=== PATIENT | female | born 1975 | race Caucasian/White ===

== ENCOUNTER 2019-06-28 16:19 | Inpatient (IN) | payer MEDICARE, MEDICAID ==
[~2019-06-28] VITALS: Ht 162.6 cm; Wt 78.9 kg
[~2019-06-28 16:19] MED LIST: ALPR0.5T3 PO; ASPI1TAB PO; CITRTAB15 PO; CLOP75TA2 PO; CRES20TA PO; CYCL10TA3 PO; FAMO20TA PO; FERR324T10 PO; GAS125CH10 PO; HYDR-3716 PO; HYDR25OI EXT; IBUP200C PO; LOVA1CAP16 PO; MELA1CAP2 PO; METO100T3 PO; MULTTAB12 PO; NORCOBULK PO; OMEP40CA2 PO; OXYC-517 PO; PARO40TA PO; SUPECAP24 PO; TYLE650T25 PO; VALT1TAB PO; VENTAER INH; VITA1CAP7 PO; VITA250L PO; WELL100T PO; ZEST20TA8 PO; [UNRECOGNIZED DRUG - CODE] TOP; primrose oil PO
[2019-06-28] MEDS ORDERED: CARA1TAB6 PO (17:05)
[2019-06-28] MEDS ORDERED: OMEP-221 PO (17:05)
[2019-06-28] MEDS ORDERED: ACET-683 PO (17:05)
[2019-06-28] MEDS ORDERED: CITRTAB18 PO (17:05)
[2019-06-28] MEDS ORDERED: VALT1TAB PO (17:05)
[2019-06-28] MEDS ORDERED: CENT1TAB PO (17:05)
[2019-06-28] MEDS ORDERED: ULTR5TAB PO (17:05)
[2019-06-28] MEDS ORDERED: SIME125C4 PO (17:05)
[2019-06-28] MEDS ORDERED: CETI10CH PO (17:05)
[2019-06-28] MEDS ORDERED: MISO200T56 PO (17:05)
[2019-06-28] MEDS ORDERED: METO200T28 PO (17:05)
[2019-06-28] MEDS ORDERED: MYCO15CR TOP (17:05)
[2019-06-28] MEDS ORDERED: FLOM0.4C39 PO (17:05)
[2019-06-28 17:20] LABS: HEMATOCRIT 49.3 % (36.0-47.0); HEMOGLOBIN 15.9 g/dl (12.0-15.5); MEAN CORPUSCULAR HEMOGLOBIN 30.2 pg (27.0-33.0); MEAN CORPUSCULAR HGB CONC 32.3 g/dl (32.0-36.5); MEAN CORPUSCULAR VOLUME 93.5 fl (80.0-96.0); PLATELET COUNT, AUTOMATED 411 10^3/uL (150-450); RED BLOOD COUNT 5.27 10^6/uL (4.00-5.40); WHITE BLOOD COUNT 8.1 10^3/uL (4.0-10.0)
[2019-06-28 17:41] LABS: AMPHETAMINES LEVEL URINE NEGATIVE (NEGATIVE); BARBITURATES URINE NEGATIVE (NEGATIVE); BENZODIAZEPINES URINE POSITIVE (NEGATIVE); CANNABINOIDS URINE NEGATIVE (NEGATIVE); COCAINE METABOLITE URINE NEGATIVE (NEGATIVE); METHADONE URINE NEGATIVE (NEGATIVE); OPIATES URINE NEGATIVE (NEGATIVE); PHENCYCLIDINE URINE NEGATIVE (NEGATIVE)
[2019-06-28 17:45] LABS: HCG, SERUM QUALITATIVE NEGATIVE (NEGATIVE)
[2019-06-28 17:51] LABS: ACETAMINOPHEN LEVEL < 2.0 UG/ML (10.0-30.0); ALBUMIN 4.2 GM/DL (3.2-5.2); ALT/SGPT 26 U/L (12-78); BILIRUBIN,DIRECT 0.1 MG/DL (0.0-0.2); BILIRUBIN,TOTAL 0.3 MG/DL (0.2-1.0); BLOOD UREA NITROGEN 7 MG/DL (7-18); CALCIUM LEVEL 9.7 MG/DL (8.5-10.1); CARBON DIOXIDE LEVEL 29 MEQ/L (21-32); CHLORIDE LEVEL 104 MEQ/L (98-107); ETHYL ALCOHOL (ETHANOL) < 0.003 % (0.000-0.010); GLOMERULAR FILTRATION RATE > 60.0 (>58); GLUCOSE, FASTING 93 MG/DL (70-100); POTASSIUM SERUM 3.9 MEQ/L (3.5-5.1); SALICYLATE LEVEL < 1.7 MG/DL (5.0-30.0); SODIUM LEVEL 140 MEQ/L (136-145); TOTAL PROTEIN 7.8 GM/DL (6.4-8.2)
[2019-06-28] MEDS: CETIRIZINE (ZyrTEC) 10 MG TAB PO SCH (18:00)
[2019-06-28] MEDS ORDERED: ALPRAZolam 0.25 MG TAB PO ONE ×3 (18:00→19:45)
[2019-06-28] MEDS ORDERED: NICOTINE 21MG/24HR 1 EA TRANSDERMAL TD ONE (18:00)
[2019-06-28] MEDS ORDERED: FERR325T3 PO (19:10)
[2019-06-28] MEDS ORDERED: D3 M1CAP2 PO (19:10)
[2019-06-28] MEDS ORDERED: BUPR1TAB52 PO (19:10)
[2019-06-28] MEDS ORDERED: HYDR-3363 PO (19:10)
[2019-06-28] MEDS ORDERED: VENTAER INH (19:10)
[2019-06-28] MEDS ORDERED: METO1TAB33 PO (19:10)
[2019-06-28] MEDS ORDERED: ALPR0.5T3 PO (19:10)
[2019-06-28] MEDS ORDERED: PARO40TA2 PO (19:10)
[2019-06-28] MEDS ORDERED: PLAV1TAB2 PO (19:10)
[2019-06-28] MEDS ORDERED: ALL10TAB29 PO (19:10)
[2019-06-28] MEDS ORDERED: MELA5CAP2 PO (19:10)
[2019-06-28] MEDS ORDERED: CYCL10TA PO (19:10)
[2019-06-28] MEDS ORDERED: SPIR-10 PO (19:10)
[2019-06-28] MEDS ORDERED: MAALOX 30 ML SUSP *UDC PO PRN (19:30)
[2019-06-28] MEDS ORDERED: traZODone 50 MG TAB PO PRN (19:30)
[2019-06-28] MEDS ORDERED: MOM 30ML SUSPENSION UDC PO PRN (19:30)
[2019-06-28 21:43] VITALS: BP 130/82
[2019-06-28] MEDS: hydrOXYzine 25 MG TAB PO PRN (22:08)
[2019-06-28] MEDS ORDERED: ALBUTEROL 90 MCG/ACT 8GM HFA INHALER INH PRN (22:15)
[2019-06-28] MEDS ORDERED: valACYclovir HCL 500 MG TAB PO PRN (22:15)
[2019-06-28] MEDS ORDERED: MYCOLOG CREAM 15 GM (NYSTATIN/TRIAMCINOLONE) TOP PRN (22:15)
[2019-06-28] MEDS ORDERED: SIMETHICONE 80 MG CHEW TAB PO PRN (22:15)
[2019-06-28] MEDS: miSOPROStol 200 MCG TAB (S0191) PO SCH (22:57)
[2019-06-28] MEDS: SUCRALFATE 1 GM TAB PO SCH (22:57)
[2019-06-28] MEDS: METOPROLOL SUCC (TopROL XL) 100MG *XL* TAB PO SCH (22:58)
[2019-06-28] MEDS: ACETAMINOPHEN TAB 650MG DOSE (2X325MG) PO PRN (22:58)
[2019-06-29] MEDS: hydrOXYzine 25 MG TAB PO PRN ×3 (06:10→12:31)
[2019-06-29 06:11] VITALS: BP 136/92
[2019-06-29] MEDS: ACETAMINOPHEN TAB 650MG DOSE (2X325MG) PO PRN ×2 (07:39→15:09)
[2019-06-29] MEDS ORDERED: PARoxetine 20 MG TAB PO SCH (09:00)
[2019-06-29] MEDS: METOPROLOL SUCC (TopROL XL) 100MG *XL* TAB PO SCH ×2 (09:27→20:19)
[2019-06-29] MEDS: CLOPIDOGREL 75 MG TAB PO SCH (09:28)
[2019-06-29] MEDS: FERROUS SULFATE 325MG TAB PO SCH (09:28)
[2019-06-29] MEDS: OMEPRAZOLE 20 MG CAP PO SCH (09:28)
[2019-06-29] MEDS: MULTIVITAMINS/MINERALS THERAP 1 TAB PO SCH (09:28)
[2019-06-29] MEDS: SUCRALFATE 1 GM TAB PO SCH ×2 (09:28→20:19)
[2019-06-29] MEDS: SPIRONOLACTONE 25 MG TAB PO SCH (09:29)
[2019-06-29] MEDS: miSOPROStol 200 MCG TAB (S0191) PO SCH ×4 (09:29→20:20)
[2019-06-29] MEDS: NICOTINE 21MG/24HR 1 EA TRANSDERMAL TD SCH (10:33)
--- NOTE | 2019-06-29 13:24 | MHHPEPDOC ---
General Date Of Admission: Jun 28, 2019 Legal Status: 9.39 Chief Complaint "I'm scared to be alone." History of Present Illness HISTORY OF THE PRESENT ILLNESS: Patient is a 44 -year-old , female, with a history of anxiety who self presented to the ED with her mother endorsing increasing anxiety. Per ED, pt was very emotional and stated she's been repressing her anxiety thru out much of her life, has tried to make outpatient appts but they were constantly pushed back, has an appt at [facility] with a PREVENTATIVE MAINTENANCE TECHNICIAN but can't wait until 07/13/19 before she sees someone for help due to her anxiety. Pt stated in the ED that her biggest trigger currently for her anxiety was that her parents are after 34yrs of marriage. Stated in ED "depression and anxiety is bigger than myself... I am scared to be alone b/c of what I might do." Pt stated in the ED that she is alone often during the day when her long time boyfriend is working and fears she will not bin in control of herself and her actions if left alone due to her anxiety. Psychiatric Review of Systems Depression (2 or more weeks): depressed mood, difficulty concentrating, suicidal thoughts Rosalinda (4 or more days of): denies Psychosis: denies Anxiety: gen/non-specific anxiety, situational anxiety, stressor related anxiety Anxiety/ 6 months or more of: restlessness, keyed up, difficulty concentrating Past Psychiatric History Previous Psychiatric Diagnosis: Anxiety and depression Previous Psychiatric Admissions: denies Suicide Attempts: denies Psychiatric Follow-up: [facility] with PREVENTATIVE MAINTENANCE TECHNICIAN 07/13/19 Psychiatric medications: wellbutrin sr 100mg bid, xanax 0.5mg tid, vistaril 25mg qid, paxil 60mg daily Past Medical History Medical Problems stroke x2 with left side deficits (lf food) hx of GI bleed HTN CAD Head Injury: Yes (stroke x2) Seizures: No Hospitalizations: Yes Surgeries: Yes (ovarian cyst removal) Family Medical/Psychiatric HX Medical Problems noncontributory Psychiatric Disorders: Yes (anxiety and depression thru out family) Addiction: No Suicide Attemps/Completions: No Addiction History other (utox positive benzo's, she is prescribed xanax) Social History Childhood: Born and raised [facility], 2 parent home, good childhood, has siblings. 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 Marital: in a committed continuous churn buttermaker relationship with her boyfriend, calls her dogs her kids Mental Status Examination General Appearance: unkempt, appears stated age, hospital scubs/clothing Build: overweight Demeanor: average Eye Contact: average Activity: average, anxious Behavior: cooperative Speech: clear, spontaneous, reg/rate,rhythm,volume Mood: euthymic, anxious Mood "I'm having a lot of anxiety and can get into see anyone to help." Affect: full, appropriate, congruent, anxious Thought Process: logical/linear, intact Thought Content (Delusions): none reported, denies SI, HI, AVH Thought Content (Other): none reported, obsessional (anxiety) Thought Content (Aggressive): none reported Perception (Hallucinations): none reported Perception (Other): none reported Cognition (Impairment of): none reported Cognition(Intelligence Est.): average Oriented: Awake, Alert, Oriented times three Insight: good Judgment: Good Psychosis: Denies Diagnoses Generalized Anxiety D/O Panic d/o without agoraphobia Assessment Pt seen and states she's been struggling with anxiety and medications not very helpful. States it's been very hard for her to see some one out patient as appts' are always rescheduled. States paxil was beneficial when first started but even with increase not very helpful for anxiety and was recently titered off and started on lexapro which she had side effects "of my body feeling like some was wrong" so titered herself off of it now back on paxil 60mg daily. Educated pt that over time xanax can increase anxiety due to med tolerance and need more to treat anxiety and that one major side effect of wellbutrin is anxiety due to DA/NA activity and recommend d/c of each to pt which she agrees with. Discussed med options with pt and pt agreeable cross-titration of paxil to prozac, increase vistaril to 50mg q6hr prn anxiety, and start inderal 10mg tid for anxiety. States trazodone not very helpful for sleep and is agreeable to starting doxepin for sleep instead. All med risks/benefits discussed regarding all meds pt starting and pt agrees with plan. She denies current SI/HI, hallucinations, delusions. Feels safe here. She is very pleasant and cooperative. Initial Treatment Plan 1. Patient was admitted on a 9.39 status. 2. Complete history was obtained. 3. With patients permission, family will be contacted and database will be expanded. 4. Patients medication regimen will be reviewed and changed accordingly. 5. Patient will be provided with protected environment. 6. Patient will be treated with individual, group, and milieu therapies. 7. Patient will receive supportive psych-education. 8. Discharge planning will commence immediately. 9. Outpatient follow-up treatment will be strongly recommended. 10. The initial treatment plan will focus initially on: * Depression. * Risk for suicide. 11. increase vistaril to 50mg q6hr prn anxiety, start inderal 10mg tid for anxiety and doxepin 10mg qhs for sleep. Cross titrate paxil to prozac. Paxil 40mg daily, prozac 20mg daily. ESTIMATED LENGTH OF STAY: 5-7 DAYS. TIME SPENT COUNSELING AND COORDINATING INITIAL CARE: 60 minutes. Vital Signs Vital Signs Date Time Temp Pulse Resp B/P (MAP) Pulse Ox O2 Delivery O2 Flow Rate FiO2 06/29/19 09:27 96 132/92 06/29/19 07:44 Room Air 06/29/19 06:11 98.8 18 06/28/19 21:43 96 Laboratory Data 24H Labs Laboratory Tests 2 06/28/19 17:02: Nucleated Red Blood Cells % (auto) 0.0, Anion Gap 7L, Glomerular Filtration Rate > 60.0, Calcium Level 9.7, Total Bilirubin 0.3, Direct Bilirubin 0.1, Aspartate Amino Transf (AST/SGOT) 19, Alanine Aminotransferase (ALT/SGPT) 26, Alkaline Phosphatase 86, Total Protein 7.8, Albumin 4.2, Albumin/Globulin Ratio 1.17, Thyroid Stimulating Hormone (TSH) 2.860, Human Chorionic Gonadotropin, Qual NEGATIVE, Salicylates Level < 1.7L, Urine Opiates Screen NEGATIVE, Urine Methadone Screen NEGATIVE, Acetaminophen Level < 2.0L, Urine Barbiturates Screen NEGATIVE, Urine Phencyclidine Screen NEGATIVE, Urine Amphetamines Screen NEGATIVE, Urine Benzodiazepines Screen POSITIVEH, Urine Cocaine Metabolite Screen NEGATIVE, Urine Cannabinoids Screen NEGATIVE, Ethyl Alcohol Level < 0.003 CBC/BMP Laboratory Tests 06/28/19 17:02 Medications Scheduled Biotin (Biotin) 5,000 Mcg Tab.rapdis, 15,000 MCG PO BID, (Reported) Bupropion HCl (Bupropion HCl Sr) 100 Mg Tab.sr.12h, 100 MG PO BID, (Reported) Calcium Citrate/Vitamin D3 (Citracal + D Maximum Caplet) 1 Each Tablet, 1 TAB PO BID, (Reported) Cetirizine HCl (Cetirizine HCl) 10 Mg Tablet, 10 MG PO QPM, (Reported) Cholecalciferol (Vitamin D3) (Vitamin D3) 5,000 Unit Capsule, 5,000 UNIT PO DAILY, (Reported) Clopidogrel Bisulfate (Plavix) 75 Mg Tablet, 75 MG PO DAILY, (Reported) Ferrous Sulfate (Ferrous Sulfate) 325 Mg Tablet.dr, 325 MG PO DAILY, (Reported) Melatonin (Melatonin) 5 Mg Capsule, 5 MG PO QHS, (Reported) Metoprolol Succinate (Metoprolol Succinate) 100 Mg Tab.er.24h, 100 MG PO BID, (Reported) Misoprostol (Misoprostol) 200 Mcg Tablet, 200 MCG PO QID, (Reported) Multivit-Min/FA/Lycopen/Lutein (Centrum Silver Tablet) 1 Each Tablet, 1 TAB PO DAILY, (Reported) Omeprazole (Omeprazole) 40 Mg Capsule.dr, 40 MG PO DAILY, (Reported) Paroxetine HCl (Paroxetine HCl) 40 Mg Tablet, 60 MG PO DAILY, (Reported) Spironolactone (Spironolactone) 25 Mg Tablet, 25 MG PO DAILY, (Reported) Sucralfate (Carafate) 1 Gm Tablet, 1 GRAM PO BID, (Reported) Scheduled PRN Acetaminophen (Acetaminophen) 500 Mg Tablet, 500 MG PO Q6H PRN for PAIN OR FEVER, (Reported) Albuterol Sulfate (Ventolin Hfa) 18 Gm Hfa.aer.ad, 2 PUFF INH Q4H PRN for wheezing, (Reported) Alprazolam (Alprazolam) 0.5 Mg Tablet, 0.5 MG PO TID PRN for ANXIETY/AGITATION, (Reported) Cyclobenzaprine HCl (Cyclobenzaprine HCl) 10 Mg Tablet, 10 MG PO TID PRN for MUSCLE SPASMS, (Reported) Hydroxyzine HCl (Hydroxyzine HCl) 25 Mg Tablet, 25 MG PO QID PRN for AN XIETY/AGITATION, (Reported) Nystatin/Triamcinolone (Nystatin-Triamcinolone Cream) 15 Gm Cream..g., 1 APPLIC TOP BID PRN for ITCHING/SWELLING, (Reported) APPLY TO AFFECTED AREAS Simethicone (Gas-X) 125 Mg Capsule, 125 MG PO ACHS PRN for GAS PAIN, (Reported) Valacyclovir HCl (Valtrex) 1,000 Mg Tablet, 1 GM PO BID PRN for COLD SORES, (Reported) Allergies Coded Allergies: citalopram (Verified Allergy, Unknown, multiple, 06/28/19) latex (Verified Allergy, Unknown, itching, 06/28/19) sulfamethoxazole (Verified Allergy, Unknown, intolerance, 06/28/19) trimethoprim (Verified Allergy, Unknown, intolerance, 06/28/19) amlodipine (Verified Adverse Reaction, Unknown, migraines and vision changes, 06/28/19) duloxetine (Verified Adverse Reaction, Unknown, palpitations and mood swings, 06/28/19) ibuprofen (Verified Adverse Reaction, Unknown, upset stomach, 06/28/19) pregabalin (Verified Adverse Reaction, Unknown, n/v/d insomnia, 06/28/19) ANITHA HENDRIX DO Jun 29, 2019 11:02 am
--- NOTE | 2019-06-29 13:55 | HPEPDOC ---
General Date of Admission Jun 28, 2019 at 19:25 Date of Service: Jun 29, 2019 Attending Physician: KENDELL CAZARES MD Chief Complaint The patient is a 44-year-old female admitted with a reason for visit of Unspecified Anxiety. Source: Patient Exam Limitations: No limitations Associated Symptoms: Denies Symptoms History of Present Illness Patient was admitted to inpatient mental health to assess exacerbation of her generalized anxiety symptoms. Patient is being assessed medically by the hospitalist group. Patient reported she recently went through some family issues which precipitated a worsening of her anxiety. She is fully aware of her symptoms and is able to self-identify and communicate with staff. Patient is wondering about her Xanax prescription which was abruptly discontinued. Nursing staff will follow-up with psychiatry regarding this. Patient requested a Nicotine Patch prescription to be continued. No medical issues reported by patient or nursing staff. Home Medications Scheduled Biotin (Biotin) 5,000 Mcg Tab.rapdis, 15,000 MCG PO BID, (Reported) Bupropion HCl (Bupropion HCl Sr) 100 Mg Tab.sr.12h, 100 MG PO BID, (Reported) Calcium Citrate/Vitamin D3 (Citracal + D Maximum Caplet) 1 Each Tablet, 1 TAB PO BID, (Reported) Cetirizine HCl (Cetirizine HCl) 10 Mg Tablet, 10 MG PO QPM, (Reported) Cholecalciferol (Vitamin D3) (Vitamin D3) 5,000 Unit Capsule, 5,000 UNIT PO DAILY, (Reported) Clopidogrel Bisulfate (Plavix) 75 Mg Tablet, 75 MG PO DAILY, (Reported) Ferrous Sulfate (Ferrous Sulfate) 325 Mg Tablet.dr, 325 MG PO DAILY, (Reported) Melatonin (Melatonin) 5 Mg Capsule, 5 MG PO QHS, (Reported) Metoprolol Succinate (Metoprolol Succinate) 100 Mg Tab.er.24h, 100 MG PO BID, (Reported) Misoprostol (Misoprostol) 200 Mcg Tablet, 200 MCG PO QID, (Reported) Multivit-Min/FA/Lycopen/Lutein (Centrum Silver Tablet) 1 Each Tablet, 1 TAB PO DAILY, (Reported) Omeprazole (Omeprazole) 40 Mg Capsule.dr, 40 MG PO DAILY, (Reported) Paroxetine HCl (Paroxetine HCl) 40 Mg Tablet, 60 MG PO DAILY, (Reported) Spironolactone (Spironolactone) 25 Mg Tablet, 25 MG PO DAILY, (Reported) Sucralfate (Carafate) 1 Gm Tablet, 1 GRAM PO BID, (Reported) Scheduled PRN Acetaminophen (Acetaminophen) 500 Mg Tablet, 500 MG PO Q6H PRN for PAIN OR FEVER, (Reported) Albuterol Sulfate (Ventolin Hfa) 18 Gm Hfa.aer.ad, 2 PUFF INH Q4H PRN for wheezing, (Reported) Alprazolam (Alprazolam) 0.5 Mg Tablet, 0.5 MG PO TID PRN for ANXIETY/AGITATION, (Reported) Cyclobenzaprine HCl (Cyclobenzaprine HCl) 10 Mg Tablet, 10 MG PO TID PRN for MUSCLE SPASMS, (Reported) Hydroxyzine HCl (Hydroxyzine HCl) 25 Mg Tablet, 25 MG PO QID PRN for ANXIETY/AGITATION, (Reported) Nystatin/Triamcinolone (Nystatin-Triamcinolone Cream) 15 Gm Cream..g., 1 APPLIC TOP BID PRN for ITCHING/SWELLING, (Reported) APPLY TO AFFECTED AREAS Simethicone (Gas-X) 125 Mg Capsule, 125 MG PO ACHS PRN for GAS PAIN, (Reported) Valacyclovir HCl (Valtrex) 1,000 Mg Tablet, 1 GM PO BID PRN for COLD SORES, (Reported) Allergies Coded Allergies: citalopram (Verified Allergy, Unknown, multiple, 06/28/19) latex (Verified Allergy, Unknown, itching, 06/28/19) sulfamethoxazole (Verified Allergy, Unknown, intolerance, 06/28/19) trimethoprim (Verified Allergy, Unknown, intolerance, 06/28/19) amlodipine (Verified Adverse Reaction, Unknown, migraines and vision changes, 06/28/19) duloxetine (Verified Adverse Reaction, Unknown, palpitations and mood swings, 06/28/19) ibuprofen (Verified Adverse Reaction, Unknown, upset stomach, 06/28/19) pregabalin (Verified Adverse Reaction, Unknown, n/v/d insomnia, 06/28/19) Social History * Smoker: former Smoker Recent Travel/Sick Contacts: Reports: Recent travel Psychosocial History: Tino SI and HI A-FIB/CHADSVASC A-FIB History Current/History of A-Fib/PAF?: No Review of Systems Constitutional: Denies: Chills, Fever, Night Sweats Eyes: Denies: Pain ENT: Denies: Head Aches Skin: Denies: Rash, Lesions Pulmonary: Denies: Dyspnea, Cough Cardiovascular: Denies: Chest Pain, Palpitations Gastrointestinal: Denies: Nausea, Vomiting, Abdominal Pain, Diarrhea Genitourinary: Denies: Dysuria, Frequency Hematologic: Denies: Bruising, Bleeding Excessively Musculoskeletal: Denies: Neck Pain, Back Pain, Joint Pain, Muscle Pain, Spasms Neurological: Denies: Weakness, Numbness Psych: Reports: Anxiety (deteriorating over the past few weeks); Denies: Mood Normal, Depression, Memory Issues Physical Examination General Exam: Positive: Alert, No Acute Distress Eye Exam: Positive: Conjunctiva & lids normal ENT Exam: Positive: Atraumatic, Mucous membr. moist/pink, Pharynx Normal Neck Exam: Positive: Supple; Negative: thyromegaly Chest Exam: Positive: Clear to auscultation, Normal air movement Heart Exam: Positive: Rate Normal, Normal S1, Normal S2 Abdomen Exam: Positive: Normal bowel sounds, Soft Extremity Exam: Positive: Cyanosis, Edema Skin Exam: Positive: Nl turgor and temperature Neuro Exam: Positive: Normal Gait, Normal Speech Psych Exam: Positive: Anxiety (Slight anxiety ) Vital Signs Vital Signs Date Time Temp Pulse Resp B/P (MAP) Pulse Ox O2 Delivery O2 Flow Rate FiO2 06/29/19 09:27 96 132/92 06/29/19 07:44 Room Air 06/29/19 06:11 98.8 18 06/28/19 21:43 96 Laboratory Data Labs 24H Laboratory Tests 2 06/28/19 17:02: Nucleated Red Blood Cells % (auto) 0.0, Anion Gap 7L, Glomerular Filtration Rate > 60.0, Calcium Level 9.7, Total Bilirubin 0.3, Direct Bilirubin 0.1, Aspartate Amino Transf (AST/SGOT) 19, Alanine Aminotransferase (ALT/SGPT) 26, Alkaline Phosphatase 86, Total Protein 7.8, Albumin 4.2, Albumin/Globulin Ratio 1.17, Thyroid Stimulating Hormone (TSH) 2.860, Human Chorionic Gonadotropin, Qual NEGATIVE, Salicylates Level < 1.7L, Urine Opiates Screen NEGATIVE, Urine Methadone Screen NEGATIVE, Acetaminophen Level < 2.0L, Urine Barbiturates Screen NEGATIVE, Urine Phencyclidine Screen NEGATIVE, Urine Amphetamines Screen NEGATIVE, Urine Benzodiazepines Screen POSITIVEH, Urine Cocaine Metabolite Screen NEGATIVE, Urine Cannabinoids Screen NEGATIVE, Ethyl Alcohol Level < 0.003 CBC/BMP Laboratory Tests 06/28/19 17:02 Plan / VTE VTE Prophylaxis Ordered?: Yes Plan Plan Patient will continue to be managed per psychiatry. Diet: Continue Current Activity: Continue Current SALONI SHAIKH PA-C Jun 29, 2019 13:55
[2019-06-29] MEDS ORDERED: PROPRANOLOL 10 MG TAB PO ONE (14:00)
[2019-06-29] MEDS: hydrOXYzine 50 MG TAB PO PRN ×2 (15:08→20:19)
--- NOTE | 2019-06-29 16:34 | IPNPDOC ---
Text Note Date of Service The patient was seen on 06/29/19. NOTE Medicine will sign off at this time. VS,Fishbone, I+O VS, Fishbone, I+O Laboratory Tests 06/28/19 17:02 Vital Signs Date Time Temp Pulse Resp B/P (MAP) Pulse Ox O2 Delivery O2 Flow Rate FiO2 06/29/19 09:27 96 132/92 06/29/19 07:44 Room Air 06/29/19 06:11 98.8 18 06/28/19 21:43 96 SALONI SHAIKH PA-C Jun 29, 2019 16:34
[2019-06-29] MEDS: PROPRANOLOL 10 MG TAB PO SCH ×2 (17:35→20:19)
[2019-06-29] MEDS: CETIRIZINE (ZyrTEC) 10 MG TAB PO SCH (17:35)
[2019-06-29 18:00] VITALS: BP 138/86
[2019-06-29] MEDS: DOXEPIN 10 MG CAP PO SCH (20:19)
[2019-06-29] MEDS: CYCLOBENZAPRINE 10 MG TAB PO PRN (20:19)
[2019-06-29] MEDS ORDERED: QUEtiapine FUMARATE 50 MG TAB PO ONE (22:45)
[2019-06-30] MEDS: hydrOXYzine 50 MG TAB PO PRN ×3 (05:05→20:55)
[2019-06-30 06:01] VITALS: BP 138/96
[2019-06-30] MEDS ORDERED: ALPRAZolam 0.5 MG TAB PO ONE (06:30)
[2019-06-30] MEDS ORDERED: ALPRAZolam 0.5 MG TAB PO PRN (09:30)
[2019-06-30] MEDS: ACETAMINOPHEN TAB 650MG DOSE (2X325MG) PO PRN ×2 (09:39→20:28)
[2019-06-30] MEDS: CLOPIDOGREL 75 MG TAB PO SCH (09:39)
[2019-06-30] MEDS: PARoxetine 20 MG TAB PO SCH (09:39)
[2019-06-30] MEDS: NICOTINE 21MG/24HR 1 EA TRANSDERMAL TD SCH (09:40)
[2019-06-30] MEDS: METOPROLOL SUCC (TopROL XL) 100MG *XL* TAB PO SCH ×2 (09:40→20:28)
[2019-06-30] MEDS: PROPRANOLOL 10 MG TAB PO SCH ×3 (09:40→20:27)
[2019-06-30] MEDS: FLUoxetine 10 MG CAP PO SCH (09:41)
[2019-06-30] MEDS: SUCRALFATE 1 GM TAB PO SCH ×2 (09:41→20:28)
[2019-06-30] MEDS: miSOPROStol 200 MCG TAB (S0191) PO SCH ×4 (09:41→20:28)
[2019-06-30] MEDS: FERROUS SULFATE 325MG TAB PO SCH (09:41)
[2019-06-30] MEDS: SPIRONOLACTONE 25 MG TAB PO SCH (09:41)
[2019-06-30] MEDS: OMEPRAZOLE 20 MG CAP PO SCH (09:41)
[2019-06-30] MEDS: MULTIVITAMINS/MINERALS THERAP 1 TAB PO SCH (09:41)
--- NOTE | 2019-06-30 09:42 | MHIPNPDOC ---
[facility] Progress Note Progress Note DATE OF SERVICE: 06/30/19 HISTORY:Patient is a 44 -year-old , female, with a history of anxiety who self presented to the ED with her mother endorsing increasing anxiety. Per ED, pt was very emotional and stated she's been repressing her anxiety thru out much of her life, has tried to make outpatient appts but they were constantly pushed back, has an appt at [facility] with a STOCKFEED MILLER but can't wait until 07/13/19 before she sees someone for help due to her anxiety. Pt stated in the ED that her biggest trigger currently for her anxiety was that her parents are after 34yrs of marriage. Stated in ED "depression and anxiety is bigger than myself... I am scared to be alone b/c of what I might do." Pt stated in the ED that she is alone often during the day when her long time boyfriend is working and fears she will not bin in control of herself and her actions if left alone due to her anxiety. Pt seen and states she's been struggling with anxiety and medications not very helpful. States it's been very hard for her to see some one out patient as appts' are always rescheduled. States paxil was beneficial when first started but even with increase not very helpful for anxiety and was recently titered off and started on lexapro which she had side effects "of my body feeling like some was wrong" so titered herself off of it now back on paxil 60mg daily. Educated pt that over time xanax can increase anxiety due to med tolerance and need more to treat anxiety and that one major side effect of wellbutrin is anxiety due to DA/NA activity and recommend d/c of each to pt which she agrees with. Discussed med options with pt and pt agreeable cross-titration of paxil to prozac, increase vistaril to 50mg q6hr prn anxiety, and start inderal 10mg tid for anxiety. States trazodone not very helpful for sleep and is agreeable to starting doxepin for sleep instead. All med risks/benefits discussed regarding all meds pt starting and pt agrees with plan. She denies current SI/HI, hallucinations, delusions. Feels safe here. She is very pleasant and cooperative. VITAL SIGNS: See below. NEW TEST RESULTS: See below. CURRENT MEDICATIONS: See below. MENTAL STATUS EXAMINATION: General Appearance: unkempt, appears stated age, hospital scrubs/clothing Build: overweight Demeanor: average Eye Contact: average Activity: average, anxious Behavior: cooperative Speech: clear, spontaneous, reg/rate,rhythm,volume Mood: euthymic, anxious Mood "depressed b/c I miss my family." Affect: full, appropriate, congruent, anxious Thought Process: logical/linear, intact, misses being with family Thought Content (Delusions): none reported, denies SI, HI, AVH Thought Content (Other): none reported, obsessional (anxiety) Thought Content (Aggressive): none reported Perception (Hallucinations): none reported Perception (Other): none reported Cognition (Impairment of): none reported Cognition(Intelligence Est.): average Oriented: Awake, Alert, Oriented times three Insight: good Judgment: Good Psychosis: Denies DIAGNOSES: Generalized Anxiety D/O Panic d/o without agoraphobia ASSESSMENT:Pt seen and states that her mood is "depressed" as she really misses her family. Pt was given one time order on xanax last night due to severe withdrawal secondary to xanax discontinuation yesterday. Stated it was terrible last night, that she couldn't sleep b/c the anxiety wouldn't go away. Advised will titrate her off xanax with prn xanax bid for benzo withdrawal which should improve and prevent withdrawal symptoms from occurring again. Anxious about her roommate being d/c as that will leave her without a roommate and doesn't want to be alone and encouraged that most likely she will get a new roommate today most likely. Asked for some coping mechanism to aid her during a panic attack and educated pt about grounding intervention for panic attack and states she will practise. Feels she is tolerating his medications and they're beneficial. She is attending groups and finding them helpful. She denies SI/HI, hallucinations, delusions. Pt feels safe here. MANAGEMENT PLAN:titrate off xanax Medications: vistaril to 50mg q6hr prn anxiety inderal 10mg tid for anxiety doxepin 10mg qhs for sleep Paxil 40mg daily prozac 20mg daily. xanax 0.5mg bid prn benzo withdrawal TIME SPENT: 30 minutes. Vital Signs Vital Signs Date Time Temp Pulse Resp B/P (MAP) Pulse Ox O2 Delivery O2 Flow Rate FiO2 06/30/19 06:01 97.5 90 18 138/96 (110) 06/29/19 07:44 Room Air 06/28/19 21:43 96 Current Medications Current Medications Medications (Trade) Dose Ordered Sig/Yoselin Route PRN Reason Start Time Stop Time Status Last Admin Dose Admin Acetaminophen (Tylenol Tab) 650 mg Q6HP PRN PO HEADACHE or DISCOMFORT 06/28/19 19:30 06/29/19 15:09 Al Hydrox/Mg Hydrox/Simethicone (Mylanta) 30 ml Q4HP PRN PO HEARTBURN/INDIGESTION 06/28/19 19:30 Albuterol Sulfate (Proventil, Ventolin Hfa) 2 puff Q4H PRN INH wheezing 06/28/19 22:15 Cetirizine HCl (ZyrTEC) 10 mg DAILY@1800 PO 06/28/19 18:00 06/29/19 17:35 Clopidogrel Bisulfate (PLAVix) 75 mg DAILY PO 06/29/19 09:00 06/29/19 09:28 Cyclobenzaprine HCl (Flexeril) 10 mg TID PRN PO MUSCLE SPASMS 06/28/19 22:15 06/29/19 20:19 Doxepin HCl (SINEquan) 10 mg QHS PO 06/29/19 21:00 06/29/19 20:19 Ferrous Sulfate (Ferrous Sulfate) 325 mg DAILY PO 06/29/19 09:00 06/29/19 09:28 Fluoxetine HCl (PROzac) 10 mg DAILY PO 06/30/19 09:00 Home Med (Med Rec Complete!) ASDIRECTED XX 06/28/19 19:15 06/28/19 19:22 DC Hydroxyzine HCl (Atarax) 25 mg Q4HP PRN PO ANXIETY/AGITATION 06/28/19 19:30 06/29/19 13:28 DC 06/29/19 12:31 Hydroxyzine HCl (Atarax) 50 mg Q4HP PRN PO ANXIETY/AGITATION 06/29/19 16:00 06/30/19 05:05 Magnesium Hydroxide (Milk Of Magnesia) 30 ml DAILYPRN PRN PO CONSTIPATION 06/28/19 19:30 Metoprolol Succinate (TopROL XL) 100 mg BID PO 06/28/19 21:00 06/29/19 20:19 Miscellaneous (Unresolved Patient Own Med Order) SEE LABEL COMMENTS DAILY XX 06/28/19 09:00 Miscellaneous (Unresolved Patient Own Med Order) SEE LABEL COMMENTS DAILY XX 06/28/19 09:00 Miscellaneous (Unresolved Patient Own Med Order) SEE LABEL COMMENTS DAILY XX 06/28/19 09:00 Misoprostol (Cytotec) 200 mcg QID PO 06/28/19 21:00 06/29/19 20:20 Multivitamins (Theragram-M) 1 tab DAILY PO 06/29/19 09:00 06/29/19 09:28 Nicotine (Nicoderm Cq 21mg) 1 patch DAILY TD 06/29/19 09:00 06/29/19 10:33 Nystatin/ Triamcinolone Acetonide (Mycolog) 1 dose BID PRN TOP ITCHING/SWELLING 06/28/19 22:15 Omeprazole (PriLOSEC) 40 mg DAILY PO 06/29/19 09:00 06/29/19 09:28 Paroxetine HCl (PAXil) 40 mg DAILY PO 06/30/19 09:00 Paroxetine HCl (PAXil) 60 mg DAILY PO 06/29/19 09:00 06/29/19 13:28 DC 06/29/19 09:29 Patient Own Medication (Patient'S Own Med) 1 tab BID PO 06/29/19 09:00 UNV Patient Own Medication (Patient'S Own Med) 1 CAP DAILY PO 06/29/19 09:00 UNV Patient Own Medication (Patient'S Own Med) 1 TAB BID PO 06/29/19 09:00 UNV Propranolol HCl (Inderal) 10 mg TID PO 06/29/19 16:00 06/29/19 20:19 Simethicone (Mylicon) 120 mg ACHS PRN PO Gas Pain 06/28/19 22:15 Spironolactone (Aldactone) 25 mg DAILY PO 06/29/19 09:00 06/29/19 09:29 Sucralfate (Carafate) 1 gm BID PO 06/28/19 21:00 06/29/19 20:19 Trazodone HCl (Desyrel) 50 mg QHSP PRN PO INSOMNIA 06/28/19 19:30 06/29/19 13:28 DC 06/28/19 22:08 Valacyclovir HCl (Valtrex) 1,000 mg BID PRN PO COLD SORES 06/28/19 22:15 Allergies Coded Allergies: latex (Verified Allergy, Unknown, itching, 06/28/19) sulfamethoxazole (Verified Allergy, Unknown, intolerance, 06/28/19) trimethoprim (Verified Allergy, Unknown, intolerance, 06/28/19) amlodipine (Verified Adverse Reaction, Unknown, migraines and vision austin nges, 06/28/19) citalopram (Verified Adverse Reaction, Unknown, multiple, 06/29/19) Pt reports medication made her lips feel tingly and gave her a "spaced-out" feeling. duloxetine (Verified Adverse Reaction, Unknown, palpitations and mood s wings, 06/28/19) ibuprofen (Verified Adverse Reaction, Unknown, upset stomach, 06/28/19) pregabalin (Verified Adverse Reaction, Unknown, n/v/d insomnia, 06/28/19) ANITHA HENDRIX DO Jun 30, 2019 9:42 am
[2019-06-30 15:59] VITALS: BP 124/90
[2019-06-30] MEDS: VITAMIN D 1,000 INTERNATIONAL UNITS TABLET PO SCH (16:46)
[2019-06-30] MEDS: CETIRIZINE (ZyrTEC) 10 MG TAB PO SCH (16:46)
[2019-06-30] MEDS: CALCIUM/VITAMIN D 500 MG TAB PO SCH (20:28)
[2019-06-30] MEDS: DOXEPIN 10 MG CAP PO SCH (20:28)
[2019-06-30] MEDS ORDERED: LORazepam 2 MG TAB PO PRN (20:30)
[2019-06-30] MEDS ORDERED: BIOTIN 5000 MCG PO SCH (21:00)
[2019-07-01] MEDS: hydrOXYzine 50 MG TAB PO PRN ×4 (01:31→17:04)
[2019-07-01] MEDS: CYCLOBENZAPRINE 10 MG TAB PO PRN ×2 (01:32→20:47)
[2019-07-01] MEDS: ACETAMINOPHEN TAB 650MG DOSE (2X325MG) PO PRN ×2 (02:53→20:50)
[2019-07-01 06:51] VITALS: BP 138/84
[2019-07-01] MEDS: PROPRANOLOL 10 MG TAB PO SCH ×3 (08:16→20:46)
[2019-07-01] MEDS: FLUoxetine 10 MG CAP PO SCH (08:16)
[2019-07-01] MEDS: CLOPIDOGREL 75 MG TAB PO SCH (08:16)
[2019-07-01] MEDS: OMEPRAZOLE 20 MG CAP PO SCH (08:16)
[2019-07-01] MEDS: MULTIVITAMINS/MINERALS THERAP 1 TAB PO SCH (08:16)
[2019-07-01] MEDS: VITAMIN D 1,000 INTERNATIONAL UNITS TABLET PO SCH (08:17)
[2019-07-01] MEDS: FERROUS SULFATE 325MG TAB PO SCH (08:17)
[2019-07-01] MEDS: METOPROLOL SUCC (TopROL XL) 100MG *XL* TAB PO SCH ×2 (08:17→20:47)
[2019-07-01] MEDS: PARoxetine 20 MG TAB PO SCH (08:17)
[2019-07-01] MEDS: SPIRONOLACTONE 25 MG TAB PO SCH (08:17)
[2019-07-01] MEDS: miSOPROStol 200 MCG TAB (S0191) PO SCH ×4 (08:17→20:43)
[2019-07-01] MEDS: CALCIUM/VITAMIN D 500 MG TAB PO SCH ×2 (08:17→20:47)
[2019-07-01] MEDS: NICOTINE 21MG/24HR 1 EA TRANSDERMAL TD SCH (08:18)
[2019-07-01] MEDS: SUCRALFATE 1 GM TAB PO SCH ×2 (08:18→20:43)
--- NOTE | 2019-07-01 09:18 | MHIPNPDOC ---
[facility] Progress Note Progress Note DATE OF SERVICE: 07/01/19 HISTORY: Patient is a 44 -year-old , female, with a history of anxiety who self presented to the ED with her mother endorsing increasing anxiety. Per ED, pt was very emotional and stated she's been repressing her anxiety thru out much of her life, has tried to make outpatient appts but they were constantly pushed back, has an appt at [facility] with a CONCAVING MACHINE OPERATOR but can't wait until 07/13/19 before she sees someone for help due to her anxiety. Pt stated in the ED that her biggest trigger currently for her anxiety was that her parents are after 34yrs of marriage. Stated in ED "depression and anxiety is bigger than myself... I am scared to be alone b/c of what I might do." Pt stated in the ED that she is alone often during the day when her long time boyfriend is working and fears she will not bin in control of herself and her actions if left alone due to her anxiety. Pt seen and states she's been struggling with anxiety and medications not very helpful. States it's been very hard for her to see some one out patient as appts' are always rescheduled. States paxil was beneficial when first started but even with increase not very helpful for anxiety and was recently titered off and started on lexapro which she had side effects "of my body feeling like some was wrong" so titered herself off of it now back on paxil 60mg daily. Educated pt that over time xanax can increase anxiety due to med tolerance and need more to treat anxiety and that one major side effect of wellbutrin is anxiety due to DA/NA activity and recommend d/c of each to pt which she agrees with. Discussed med options with pt and pt agreeable cross-titration of paxil to prozac, increase vistaril to 50mg q6hr prn anxiety, and start inderal 10mg tid for anxiety. States trazodone not very helpful for sleep and is agreeable to starting doxepin for sleep instead. All med risks/benefits discussed regarding all meds pt starting and pt agrees with plan. She denies current SI/HI, hallucinations, delusions. Feels safe here. She is very pleasant and cooperative. VITAL SIGNS: See below. NEW TEST RESULTS: See below. CURRENT MEDICATIONS: See below. MENTAL STATUS EXAMINATION: General Appearance: unkempt, appears stated age, hospital scrubs/clothing Build: overweight Demeanor: average Eye Contact: average Activity: average, anxious Behavior: cooperative Speech: clear, spontaneous, reg/rate,rhythm,volume Mood: euthymic, anxious Mood "super anxious" Affect: full, appropriate, congruent, anxious Thought Process: logical/linear, intact, misses being with family, urges to help other pt's Thought Content (Delusions): none reported, denies SI, HI, AVH Thought Content (Other): none reported, obsessional (anxiety) Thought Content (Aggressive): none reported Perception (Hallucinations): none reported Perception (Other): none reported Cognition (Impairment of): none reported Cognition(Intelligence Est.): average Oriented: Awake, Alert, Oriented times three Insight: good Judgment: Good Psychosis: Denies DIAGNOSES: Generalized Anxiety D/O Panic d/o without agoraphobia ASSESSMENT:Pt seen and states that her mood is "super anxious" 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 Encouraged to think she is here for herself and no one else and that if she needs to take time alone in her room to reduce her anxiety and urge to help other pt's on the unit. States she'll work on. Is tolerating ativan taper with less daily for benzo withdrawal. Mood is improving overall. States she tolerating cross taper off paxil to prozac, denies paxil withdrawal and agreeabl e to continued cross-taper. Asked yesterday for some coping mechanism to aid her during a panic attack and educated pt about grounding intervention for panic attack and states she will practise. Slept well last night. Feels she is tolerating his medications and they're beneficial. She is attending groups and finding them helpful. She denies SI/HI, hallucinations, delusions. Pt feels safe here. MANAGEMENT PLAN:titrate off xanax with ciwa ativan taper, continue cross taper paxil to prozac Medications: vistaril to 50mg q6hr prn anxiety inderal 10mg tid for anxiety doxepin 10mg qhs for sleep Paxil 20mg daily prozac 230mg daily. ativan 1mg prn benzo withdrawal TIME SPENT: 30 minutes. Vital Signs Vital Signs Date Time Temp Pulse Resp B/P (MAP) Pulse Ox O2 Delivery O2 Flow Rate FiO2 07/01/19 08:16 100 130/87 07/01/19 06:51 97.6 14 06/29/19 07:44 Room Air 06/28/19 21:43 96 Current Medications Current Medications Medications (Trade) Dose Ordered Sig/Yoselin Route PRN Reason Start Time Stop Time Status Last Admin Dose Admin Acetaminophen (Tylenol Tab) 650 mg Q6HP PRN PO HEADACHE or DISCOMFORT 06/28/19 19:30 07/01/19 02:53 Al Hydrox/Mg Hydrox/Simethicone (Mylanta) 30 ml Q4HP PRN PO HEARTBURN/INDIGESTION 06/28/19 19:30 Albuterol Sulfate (Proventil, Ventolin Hfa) 2 puff Q4H PRN INH wheezing 06/28/19 22:15 Alprazolam (Xanax) 0.5 mg BIDP PRN PO ANXIETY 06/30/19 09:30 06/30/19 20:32 DC Calcium/Vitamin D (Oscal D) 500 mg BID PO 06/30/19 21:00 07/01/19 08:17 Cetirizine HCl (ZyrTEC) 10 mg DAILY@1800 PO 06/28/19 18:00 06/30/19 16:46 Clopidogrel Bisulfate (PLAVix) 75 mg DAILY PO 06/29/19 09:00 07/01/19 08:16 Cyclobenzaprine HCl (Flexeril) 10 mg TID PRN PO MUSCLE SPASMS 06/28/19 22:15 07/01/19 01:32 Doxepin HCl (SINEquan) 10 mg QHS PO 06/29/19 21:00 06/30/19 20:28 Ferrous Sulfate (Ferrous Sulfate) 325 mg DAILY PO 06/29/19 09:00 07/01/19 08:17 Fluoxetine HCl (PROzac) 10 mg DAILY PO 06/30/19 09:00 07/01/19 08:16 Home Med (Med Rec Complete!) ASDIRECTED XX 06/28/19 19:15 06/28/19 19:22 DC Hydroxyzine HCl (Atarax) 25 mg Q4HP PRN PO ANXIETY/AGITATION 06/28/19 19:30 06/29/19 13:28 DC 06/29/19 12:31 Hydroxyzine HCl (Atarax) 50 mg Q4HP PRN PO ANXIETY/AGITATION 06/29/19 16:00 07/01/19 08:15 Lorazepam (Ativan) 1 mg ASDIRECTED PRN PO SEE PROTOCOL 06/30/19 20:30 Magnesium Hydroxide (Milk Of Magnesia) 30 ml DAILYPRN PRN PO CONSTIPATION 06/28/19 19:30 Metoprolol Succinate (TopROL XL) 100 mg BID PO 06/28/19 21:00 07/01/19 08:17 Miscellaneous (Unresolved Patient Own Med Order) SEE LABEL COMMENTS DAILY XX 06/28/19 09:00 06/30/19 13:07 DC Miscellaneous (Unresolved Patient Own Med Order) SEE LABEL COMMENTS DAILY XX 06/28/19 09:00 06/30/19 13:53 DC Miscellaneous (Unresolved Patient Own Med Order) SEE LABEL COMMENTS DAILY XX 06/28/19 09:00 Misoprostol (Cytotec) 200 mcg QID PO 06/28/19 21:00 07/01/19 08:17 Multivitamins (Theragram-M) 1 tab DAILY PO 06/29/19 09:00 07/01/19 08:16 Nicotine (Nicoderm Cq 21mg) 1 patch DAILY TD 06/29/19 09:00 07/01/19 08:18 Nystatin/ Triamcinolone Acetonide (Mycolog) 1 dose BID PRN TOP ITCHING/SWELLING 06/28/19 22:15 Omeprazole (PriLOSEC) 40 mg DAILY PO 06/29/19 09:00 07/01/19 08:16 Paroxetine HCl (PAXil) 40 mg DAILY PO 06/30/19 09:00 07/01/19 08:17 Paroxetine HCl (PAXil) 60 mg DAILY PO 06/29/19 09:00 06/29/19 13:28 DC 06/29/19 09:29 Patient Own Medication (Patient'S Own Med) Biotin 5,000 mcg -YANCY... BID PO 06/30/19 21:00 Hold Propranolol HCl (Inderal) 10 mg TID PO 06/29/19 16:00 07/01/19 08:16 Simethicone (Mylicon) 120 mg ACHS PRN PO Gas Pain 06/28/19 22:15 Spironolactone (Aldactone) 25 mg DAILY PO 06/29/19 09:00 07/01/19 08:17 Sucralfate (Carafate) 1 gm BID PO 06/28/19 21:00 07/01/19 08:18 Trazodone HCl (Desyrel) 50 mg QHSP PRN PO INSOMNIA 06/28/19 19:30 06/29/19 13:28 DC 06/28/19 22:08 Valacyclovir HCl (Valtrex) 1,000 mg BID PRN PO COLD SORES 06/28/19 22:15 Vitamin D (Vitamin D) 5,000 units DAILY PO 06/30/19 09:00 07/01/19 08:17 Allergies Coded Allergies: latex (Verified Allergy, Unknown, itching, 06/28/19) sulfamethoxazole (Verified Allergy, Unknown, intolerance, 06/28/19) trimethoprim (Verified Allergy, Unknown, intolerance, 06/28/19) amlodipine (Verified Adverse Reaction, Unknown, migraines and vision changes, 06/28/19) citalopram (Verified Adverse Reaction, Unknown, multiple, 06/29/19) Pt reports medication made her lips feel tingly and gave her a "spaced-out" feeling. duloxetine (Verified Adverse Reaction, Unknown, palpitations and mood swings, 06/28/19) ibuprofen (Verified Adverse Reaction, Unknown, upset stomach, 06/28/19) pregabalin (Verified Adverse Reaction, Unknown, n/v/d insomnia, 06/28/19) ANITHA HENDRIX DO Jul 01, 2019 9:18 am
[2019-07-01] MEDS ORDERED: FLUoxetine 10 MG CAP PO ONE (09:30)
[2019-07-01 15:33] VITALS: BP 136/87
[2019-07-01] MEDS: CETIRIZINE (ZyrTEC) 10 MG TAB PO SCH (17:03)
[2019-07-01 19:41] VITALS: BP 165/96
[2019-07-01] MEDS: LORazepam 2 MG TAB PO PRN (19:49)
[2019-07-01] MEDS: DOXEPIN 10 MG CAP PO SCH (20:47)
[2019-07-01] MEDS ORDERED: THIAMINE 100 MG TAB PO SCH (21:00)
[2019-07-02 06:06] VITALS: BP 134/85
[2019-07-02] MEDS: hydrOXYzine 50 MG TAB PO PRN ×2 (08:10→20:27)
[2019-07-02] MEDS: PARoxetine 20 MG TAB PO SCH (08:10)
[2019-07-02] MEDS: MULTIVITAMINS/MINERALS THERAP 1 TAB PO SCH (08:10)
[2019-07-02] MEDS: FERROUS SULFATE 325MG TAB PO SCH (08:11)
[2019-07-02] MEDS: CLOPIDOGREL 75 MG TAB PO SCH (08:11)
[2019-07-02] MEDS: CALCIUM/VITAMIN D 500 MG TAB PO SCH ×2 (08:11→20:27)
[2019-07-02] MEDS: PROPRANOLOL 10 MG TAB PO SCH ×3 (08:11→20:27)
[2019-07-02] MEDS: VITAMIN D 1,000 INTERNATIONAL UNITS TABLET PO SCH (08:11)
[2019-07-02] MEDS: miSOPROStol 200 MCG TAB (S0191) PO SCH ×4 (08:11→20:25)
[2019-07-02] MEDS: METOPROLOL SUCC (TopROL XL) 100MG *XL* TAB PO SCH ×2 (08:11→20:27)
[2019-07-02] MEDS: OMEPRAZOLE 20 MG CAP PO SCH (08:11)
[2019-07-02] MEDS: SPIRONOLACTONE 25 MG TAB PO SCH (08:12)
[2019-07-02] MEDS: NICOTINE 21MG/24HR 1 EA TRANSDERMAL TD SCH (08:12)
[2019-07-02] MEDS: SUCRALFATE 1 GM TAB PO SCH ×2 (08:34→20:28)
[2019-07-02] MEDS ORDERED: MULTIVITAMINS/MINERALS THERAP 1 TAB PO SCH (09:00)
[2019-07-02] MEDS ORDERED: FLUoxetine 10 MG CAP PO SCH (09:00)
[2019-07-02] MEDS ORDERED: FOLIC ACID 1 MG TAB PO SCH (09:00)
--- NOTE | 2019-07-02 09:37 | MHIPNPDOC ---
[facility] Progress Note Progress Note DATE OF SERVICE: 07/02/19 HISTORY: Patient is a 44 -year-old , female, with a history of anxiety who self presented to the ED with her mother endorsing increasing anxiety. Per ED, pt was very emotional and stated she's been repressing her anxiety thru out much of her life, has tried to make outpatient appts but they were constantly pushed back, has an appt at [facility] with a SEARCH MARKETING ANALYST but can't wait until 07/13/19 before she sees someone for help due to her anxiety. Pt stated in the ED that her biggest trigger currently for her anxiety was that her parents are after 34yrs of marriage. Stated in ED "depression and anxiety is bigger than myself... I am scared to be alone b/c of what I might do." Pt stated in the ED that she is alone often during the day when her long time boyfriend is working and fears she will not bin in control of herself and her actions if left alone due to her anxiety. Pt seen and states she's been struggling with anxiety and medications not very helpful. States it's been very hard for her to see some one out patient as appts' are always rescheduled. States paxil was beneficial when first started but even with increase not very helpful for anxiety and was recently titered off and started on lexapro which she had side effects "of my body feeling like some was wrong" so titered herself off of it now back on paxil 60mg daily. Educated pt that over time xanax can increase anxiety due to med tolerance and need more to treat anxiety and that one major side effect of wellbutrin is anxiety due to DA/NA activity and recommend d/c of each to pt which she agrees with. Discussed med options with pt and pt agreeable cross-titration of paxil to prozac, increase vistaril to 50mg q6hr prn anxiety, and start inderal 10mg tid for anxiety. States trazodone not very helpful for sleep and is agreeable to starting doxepin for sleep instead. All med risks/benefits discussed regarding all meds pt starting and pt agrees with plan. She denies current SI/HI, hallucinations, delusions. Feels safe here. She is very pleasant and cooperative. VITAL SIGNS: See below. NEW TEST RESULTS: See below. CURRENT MEDICATIONS: See below. MENTAL STATUS EXAMINATION: General Appearance: unkempt, appears stated age, hospital scrubs/clothing Build: overweight Demeanor: average Eye Contact: average Activity: average, less anxious Behavior: cooperative Speech: clear, spontaneous, reg/rate,rhythm,volume Mood: euthymic, less anxious Mood "better" Affect: full, appropriate, congruent, less anxious Thought Process: logical/linear, intact, less missing being with family, urges to help other pt's Thought Content (Delusions): none reported, denies SI, HI, AVH Thought Content (Other): none reported, obsessional (anxiety) Thought Content (Aggressive): none reported Perception (Hallucinations): none reported Perception (Other): none reported Cognition (Impairment of): none reported Cognition(Intelligence Est.): average Oriented: Awake, Alert, Oriented times three Insight: good Judgment: Good Psychosis: Denies DIAGNOSES: Generalized Anxiety D/O Panic d/o without agoraphobia ASSESSMENT:Pt seen and states that her mood is "better" today as her anxiety is improving overall. Is tolerating ativan taper with less daily for benzo withdrawal. Mood is improving overall. States she tolerating cross taper off paxil to prozac, denies paxil withdrawal and agreeable to continued cross-taper. Asked Wednesday for some coping mechanism to aid her during a panic attack and educated pt about grounding intervention for panic attack and states she will practise. Slept well last night. Feels she is tolerating his medications and they're beneficial. She is attending groups and finding them helpful. She denies SI/HI, hallucinations, delusions. Pt feels safe here. Hopes her family visits today as they didn't yesterday and she misses them. MANAGEMENT PLAN:titrate off xanax with ciwa ativan taper, continue cross taper paxil to prozac Medications: vistaril to 50mg q6hr prn anxiety inderal 10mg tid for anxiety doxepin 10mg qhs for sleep Paxil 20mg daily prozac 30mg daily. ativan 1mg prn benzo withdrawal TIME SPENT: 30 minutes. Vital Signs Vital Signs Date Time Temp Pulse Resp B/P (MAP) Pulse Ox O2 Delivery O2 Flow Rate FiO2 07/02/19 08:11 100 129/84 07/02/19 06:06 98.6 16 Room Air 07/01/19 19:41 100 Current Medications Current Medications Medications (Trade) Dose Ordered Sig/Yoselin Route PRN Reason Start Time Stop Time Status Last Admin Dose Admin Acetaminophen (Tylenol Tab) 650 mg Q6HP PRN PO HEADACHE or DISCOMFORT 06/28/19 19:30 07/01/19 20:50 Al Hydrox/Mg Hydrox/Simethicone (Mylanta) 30 ml Q4HP PRN PO HEARTBURN/INDIGESTION 06/28/19 19:30 Albuterol Sulfate (Proventil, Ventolin Hfa) 2 puff Q4H PRN INH wheezing 06/28/19 22:15 Alprazolam (Xanax) 0.5 mg BIDP PRN PO ANXIETY 06/30/19 09:30 06/30/19 20:32 DC Calcium/Vitamin D (Oscal D) 500 mg BID PO 06/30/19 21:00 07/02/19 08:11 Cetirizine HCl (ZyrTEC) 10 mg DAILY@1800 PO 06/28/19 18:00 07/01/19 17:03 Clopidogrel Bisulfate (PLAVix) 75 mg DAILY PO 06/29/19 09:00 07/02/19 08:11 Cyclobenzaprine HCl (Flexeril) 10 mg TID PRN PO MUSCLE SPASMS 06/28/19 22:15 07/01/19 20:47 Doxepin HCl (SINEquan) 10 mg QHS PO 06/29/19 21:00 07/01/19 20:47 Ferrous Sulfate (Ferrous Sulfate) 325 mg DAILY PO 06/29/19 09:00 07/02/19 08:11 Fluoxetine HCl (PROzac) 10 mg DAILY PO 06/30/19 09:00 07/01/19 09:18 DC 07/01/19 08:16 Fluoxetine HCl (PROzac) 30 mg DAILY PO 07/02/19 09:00 Folic Acid (Folic Acid) 1 mg DAILY PO 07/02/19 09:00 07/01/19 20:07 DC Home Med (Med Rec Complete!) ASDIRECTED XX 06/28/19 19:15 06/28/19 19:22 DC Hydroxyzine HCl (Atarax) 25 mg Q4HP PRN PO ANXIETY/AGITATION 06/28/19 19:30 06/29/19 13:28 DC 06/29/19 12:31 Hydroxyzine HCl (Atarax) 50 mg Q4HP PRN PO ANXIETY/AGITATION 06/29/19 16:00 07/02/19 08:10 Lorazepam (Ativan) 1 mg ASDIRECTED PRN PO SEE PROTOCOL 06/30/19 20:30 Cancel Lorazepam (Ativan) 2 mg ASDIRECTED PRN PO SEE PROTOCOL 07/01/19 19:45 07/01/19 19:49 Magnesium Hydroxide (Milk Of Magnesia) 30 ml DAILYPRN PRN PO CONSTIPATION 06/28/19 19:30 Metoprolol Succinate (TopROL XL) 100 mg BID PO 06/28/19 21:00 07/02/19 08:11 Miscellaneous (Unresolved Patient Own Med Order) SEE LABEL COMMENTS DAILY XX 06/28/19 09:00 06/30/19 13:07 DC Miscellaneous (Unresolved Patient Own Med Order) SEE LABEL COMMENTS DAILY XX 06/28/19 09:00 06/30/19 13:53 DC Miscellaneous (Unresolved Patient Own Med Order) SEE LABEL COMMENTS DAILY XX 06/28/19 09:00 Misoprostol (Cytotec) 200 mcg QID PO 06/28/19 21:00 07/02/19 08:11 Multivitamins (Theragram-M) 1 tab DAILY PO 06/29/19 09:00 07/02/19 08:10 Multivitamins (Theragram-M) 1 tab DAILY PO 07/02/19 09:00 07/01/19 20:07 DC Nicotine (Nicoderm Cq 21mg) 1 patch DAILY TD 06/29/19 09:00 07/02/19 08:12 Nystatin/ Triamcinolone Acetonide (Mycolog) 1 dose BID PRN TOP ITCHING/SWELLING 06/28/19 22:15 Omeprazole (PriLOSEC) 40 mg DAILY PO 06/29/19 09:00 07/02/19 08:11 Paroxetine HCl (PAXil) 20 mg DAILY PO 07/02/19 09:00 07/02/19 08:10 Paroxetine HCl (PAXil) 40 mg DAILY PO 06/30/19 09:00 07/01/19 09:18 DC 07/01/19 08:17 Paroxetine HCl (PAXil) 60 mg DAILY PO 06/29/19 09:00 06/29/19 13:28 DC 06/29/19 09:29 Patient Own Medication (Patient'S Own Med) Biotin 5,000 mcg -YANCY... BID PO 06/30/19 21:00 Hold Propranolol HCl (Inderal) 10 mg TID PO 06/29/19 16:00 07/02/19 08:11 Simethicone (Mylicon) 120 mg ACHS PRN PO Gas Pain 06/28/19 22:15 Spironolactone (Aldactone) 25 mg DAILY PO 06/29/19 09:00 07/02/19 08:12 Sucralfate (Carafate) 1 gm BID PO 06/28/19 21:00 07/02/19 08:34 Thiamine HCl (Thiamine HCl) 100 mg BID PO 07/01/19 21:00 07/04/19 09:01 Cancel Trazodone HCl (Desyrel) 50 mg QHSP PRN PO INSOMNIA 06/28/19 19:30 06/29/19 13:28 DC 06/28/19 22:08 Valacyclovir HCl (Valtrex) 1,000 mg BID PRN PO COLD SORES 06/28/19 22:15 Vitamin D (Vitamin D) 5,000 units DAILY PO 06/30/19 09:00 07/02/19 08:11 Allergies Coded Allergies: latex (Verified Allergy, Unknown, itching, 06/28/19) sulfamethoxazole (Verified Allergy, Unknown, intolerance, 06/28/19) trimethoprim (Verified Allergy, Unknown, intolerance, 06/28/19) amlodipine (Verified Adverse Reaction, Unknown, migraines and vision ch anges, 06/28/19) citalopram (Verified Adverse Reaction, Unknown, multiple, 06/29/19) Pt reports medication made her lips feel tingly and gave her a "spaced-out" feeling. duloxetine (Verified Adverse Reaction, Unknown, palpitations and mood swings, 06/28/19) ibuprofen (Verified Adverse Reaction, Unknown, upset stomach, 06/28/19) pregabalin (Verified Adverse Reaction, Unknown, n/v/d insomnia, 06/28/19) ANITHA HENDRIX DO Jul 02, 2019 09:36
[2019-07-02 15:36] VITALS: BP 113/73
[2019-07-02] MEDS: CETIRIZINE (ZyrTEC) 10 MG TAB PO SCH (17:29)
[2019-07-02] MEDS: CYCLOBENZAPRINE 10 MG TAB PO PRN (20:27)
[2019-07-02] MEDS: DOXEPIN 10 MG CAP PO SCH (20:28)
[2019-07-02] MEDS: ACETAMINOPHEN TAB 650MG DOSE (2X325MG) PO PRN (20:30)
[2019-07-03] MEDS: hydrOXYzine 50 MG TAB PO PRN ×2 (02:34→08:25)
[2019-07-03] MEDS: ACETAMINOPHEN TAB 650MG DOSE (2X325MG) PO PRN (02:34)
[2019-07-03 05:37] VITALS: BP 142/88
[2019-07-03] MEDS: LORazepam 2 MG TAB PO PRN (05:45)
[2019-07-03 06:44] VITALS: BP 142/88
[2019-07-03] MEDS: miSOPROStol 200 MCG TAB (S0191) PO SCH (08:13)
[2019-07-03] MEDS: PARoxetine 20 MG TAB PO SCH (08:13)
[2019-07-03] MEDS: MULTIVITAMINS/MINERALS THERAP 1 TAB PO SCH (08:15)
[2019-07-03] MEDS: CLOPIDOGREL 75 MG TAB PO SCH (08:16)
[2019-07-03] MEDS: FERROUS SULFATE 325MG TAB PO SCH (08:16)
[2019-07-03] MEDS: CALCIUM/VITAMIN D 500 MG TAB PO SCH (08:16)
[2019-07-03 08:17] VITALS: BP 124/78
[2019-07-03] MEDS: OMEPRAZOLE 20 MG CAP PO SCH (08:17)
[2019-07-03] MEDS: METOPROLOL SUCC (TopROL XL) 100MG *XL* TAB PO SCH (08:17)
[2019-07-03] MEDS ORDERED: PARO20TA3 PO (08:18)
[2019-07-03] MEDS ORDERED: DOXE10CA PO (08:18)
[2019-07-03] MEDS ORDERED: HYDR-3363 PO (08:18)
[2019-07-03] MEDS ORDERED: HYDR50TA70 PO (08:18)
[2019-07-03] MEDS ORDERED: ABIL1TAB11 PO (08:18)
[2019-07-03] MEDS ORDERED: PROP10TA56 PO (08:18)
[2019-07-03] MEDS: NICOTINE 21MG/24HR 1 EA TRANSDERMAL TD SCH (08:18)
[2019-07-03] MEDS: VITAMIN D 1,000 INTERNATIONAL UNITS TABLET PO SCH (08:24)
[2019-07-03] MEDS: SUCRALFATE 1 GM TAB PO SCH (08:25)
[2019-07-03] MEDS: PROPRANOLOL 10 MG TAB PO SCH (08:25)
[2019-07-03] MEDS: SPIRONOLACTONE 25 MG TAB PO SCH (08:25)
--- NOTE | 2019-07-03 10:19 | MHDSPDOC ---
[facility] Discharge Summary Discharge Summary DATE OF ADMISSION: Jun 28, 2019 at 19:25 DATE OF DISCHARGE: 07/04/19 Discharge Ellen Hardwick MRN: N/A Date of : N/A Date of Service: 07/03/2019 Diagnoses Generalized Anxiety D/O Panic d/o without agoraphobia History of Present Illness Patient is a 44 -year-old , female, with a history of anxiety who self presented to the ED with her mother endorsing increasing anxiety. Per ED, pt was very emotional and stated she's been repressing her anxiety thru out much of her life, has tried to make outpatient appts but they were constantly pushed back, has an appt at [facility] with a COMMUNITY OUTREACH MANAGER but can't wait until 07/13/19 before she sees someone for help due to her anxiety. Pt stated in the ED that her biggest trigger currently for her anxiety was that her parents are after 34yrs of marriage. Stated in ED "depression and anxiety is bigger than myself... I am scared to be alone b/c of what I might do." Pt stated in the ED that she is alone often during the day when her long time boyfriend is working and fears she will not bin in control of herself and her actions if left alone due to her anxiety. Consultants Involved Hospitalist/PCP screening Treatment and Progress On The Unit The patient was admitted to the inpatient unit. She was subsequently titrated off of her home Xanax with a CIWA Ativan taper. She had been initially brought in on Paxil and then subsequently tapered to Prozac to a total of 30 mg daily, continued on Inderal, doxepin, and Vistaril for anxiety. The patient had been denying any suicidal or homicidal ideation through her presentation and on the day of discharge requested to leave, did not meet involuntary criteria, was cooperative, friendly, and engaged. I spent 10s of minutes discussing with the patient various psychotherapy options for her anxiety prior to her discharge. She did not meet involuntary criteria due to preponderance of the factors above. She had doing well and declined voluntary and was discharged in good marie. Discharge Assessment 44-year-old woman with a history of anxiety presents to the ED due to increased anxiety. Reportedly her anxiety had been out of control. She was admitted out of abundance of caution, treated on a cross taper off of Xanax on to Prozac with positive results. Mental Status Examination General: Well dressed with good hygiene Speech: Spontaneous and fluid Thought processes: Linear and logical MSK: Smooth and coordinated gait, no signs of tremors or involuntary orofacial movements Thought content: Future orientated Abstract reasoning, and computation: Intact Description of associations: Intact Description of abnormal or psychotic thoughts: Denies any suicidal or homicidal ideation. Denies any auditory or visual hallucinations. Does not appear to be responding to internal stimuli. Does not appear to be endorsing any bizarre or paranoid ideation. Judgment: fair Insight: fair Orientation: Alert and orientated 3 Cognition: Grossly normal Recent and remote memory: Intact Attention span and concentration: Intact Fund of knowledge: Adequate Mood: "okay" Affect: Euthymic with a full range Follow Up The social work team worked during the predischarge meeting in order to evaluate for further issues of lethality address them fully before discharge. They worked on safety planning with the patient's family members in order to ensure that the patient will have a safe and effective discharge. Time Spent The amount of time spent in the coordination of care for this patient was approximately 60 minutes. Wednesday Vital Signs/I&Os Vital Signs Date Time Temp Pulse Resp B/P (MAP) Pulse Ox O2 Delivery O2 Flow Rate FiO2 07/03/19 08:25 103 07/03/19 08:17 124/78 07/03/19 06:44 97.3 14 Room Air 07/01/19 19:41 100 Medications Scheduled Aripiprazole (Abilify) 5 Mg Tablet, 5 MG PO DAILY for antidepressant augmentation, #10 Biotin (Biotin) 5,000 Mcg Tab.rapdis, 15,000 MCG PO BID, (Reported) Calcium Citrate/Vitamin D3 (Citracal + D Maximum Caplet) 1 Each Tablet, 1 TAB PO BID, (Reported) Cetirizine HCl (Cetirizine HCl) 10 Mg Tablet, 10 MG PO QPM, (Reported) Cholecalciferol (Vitamin D3) (Vitamin D3) 5,000 Unit Capsule, 5,000 UNIT PO DAILY, (Reported) Clopidogrel Bisulfate (Plavix) 75 Mg Tablet, 75 MG PO DAILY, (Reported) Doxepin HCl (Doxepin HCl) 10 Mg Capsule, 10 MG PO QHS for sleep, #10 Ferrous Sulfate (Ferrous Sulfate) 325 Mg Tablet.dr, 325 MG PO DAILY, (Reported) Melatonin (Melatonin) 5 Mg Capsule, 5 MG PO QHS, (Reported) Metoprolol Succinate (Metoprolol Succinate) 100 Mg Tab.er.24h, 100 MG PO BID, (Reported) Misoprostol (Misoprostol) 200 Mcg Tablet, 200 MCG PO QID, (Reported) Multivit-Min/FA/Lycopen/Lutein (Centrum Silver Tablet) 1 Each Tablet, 1 TAB PO DAILY, (Reported) Omeprazole (Omeprazole) 40 Mg Capsule.dr, 40 MG PO DAILY, (Reported) Paroxetine HCl (Paroxetine HCl) 20 Mg Tablet, 20 MG PO DAILY for mood, #10 Propranolol HCl (Propranolol HCl) 10 Mg Tablet, 10 MG PO TID for anxiety, #30 Spironolactone (Spironolactone) 25 Mg Tablet, 25 MG PO DAILY, (Reported) Sucralfate (Carafate) 1 Gm Tablet, 1 GRAM PO BID, (Reported) Scheduled PRN Acetaminophen (Acetaminophen) 500 Mg Tablet, 500 MG PO Q6H PRN for PAIN OR FEV ER, (Reported) Albuterol Sulfate (Ventolin Hfa) 18 Gm Hfa.aer.ad, 2 PUFF INH Q4H PRN for wheezing, (Reported) Cyclobenzaprine HCl (Cyclobenzaprine HCl) 10 Mg Tablet, 10 MG PO TID PRN for MUSCLE SPASMS, (Reported) Hydroxyzine HCl (Hydroxyzine HCl) 25 Mg Tablet, 25 MG PO QID PRN for ANXIET Y/AGITATION, #30 Hydroxyzine HCl (Hydroxyzine HCl) 50 Mg Tablet, 50 MG PO Q6HP PRN for ANXIETY/AGITATION, #30 Nystatin/Triamcinolone (Nystatin-Triamcinolone Cream) 15 Gm Cream..g., 1 APPLIC TOP BID PRN for ITCHING/SWELLING, (Reported) APPLY TO AFFECTED AREAS Simethicone (Gas-X) 125 Mg Capsule, 125 MG PO ACHS PRN for GAS PAIN, (Reported) Valacyclovir HCl (Valtrex) 1,000 Mg Tablet, 1 GM PO BID PRN for COLD SORES, (Reported) Allergies Coded Allergies: latex (Verified Allergy, Unknown, itching, 06/28/19) sulfamethoxazole (Verified Allergy, Unknown, intolerance, 06/28/19) trimethoprim (Verified Allergy, Unknown, intolerance, 06/28/19) amlodipine (Verified Adverse Reaction, Unknown, migraines and vision changes, 06/28/19) citalopram (Verified Adverse Reaction, Unknown, multiple, 06/29/19) Pt reports medication made her lips feel tingly and gave her a "spaced-out" feeling. duloxetine (Verified Adverse Reaction, Unknown, palpitations and mood swings, 06/28/19) ibuprofen (Verified Adverse Reaction, Unknown, upset stomach, 06/28/19) pregabalin (Verified Adverse Reaction, Unknown, n/v/d insomnia, 06/28/19) JONATAN VILLANUEVA DO Jul 03, 2019 10:19
== END 2019-07-03 11:00 | disposition home or self-care (01) | DRG 880 ==
LOC: M ED 16:19 → M ED INP 19:25 → M PSY 21:18
PROVIDERS: ADMIT Psychiatry & Neurology Psychiatry; ATTEND Psychiatry & Neurology Addiction Medicine
DX: F41.1 Generalized anxiety disorder (principal); I69.354 Hemiplegia and hemiparesis following cerebral infarction affecting left non-dominant side; F41.0 Panic disorder [episodic paroxysmal anxiety]; Z87.891 Personal history of nicotine dependence; I10 Essential (primary) hypertension; I25.10 Atherosclerotic heart disease of native coronary artery without angina pectoris; Z79.899 Other long term (current) drug therapy; Z88.1 Allergy status to other antibiotic agents; Z88.6 Allergy status to analgesic agent; Z88.8 Allergy status to other drugs, medicaments and biological substances; Z88.2 Allergy status to sulfonamides